=== PATIENT | female | born 1965 | race African-American/Black ===

== ENCOUNTER → 2016-06-09 | Outpatient (CLI) | payer OTHER ==
[~2016-06-09] MED LIST: ALBUTEROL MININEB NEB; ALBUTEROL17 GM INH; AMLODIPINE BESYL5 MG PO; METOPROLOL SUCC50 MG PO; ZESTORETIC 20-1 EAC1 PO
--- NOTE | ~2016-06-09 | ST ---
Unit #: [id number] #: [id number] Patient: TRENT HUSSEIN [id number] [address] [place], [place] [address] [id number] O MR#: [id number] NAME: TRENT HUSSEIN : 1965 SEX: F STUDY DATE/TIME: 06/09/2016 UNIT: [facility] ROOM: STUDY DESCRIPTION: Attending Physician: Lucero Reddy M.D. Referring Physician: Lucero Reddy M.D. Primary Care Physician: Generic Doctor Not In System CARDIOLOGY REPORT REASON FOR TEST Preop surgical clearance for rotator cuff repair. This test was ordered as a walking Lexiscan; however, the patient attempted and was unable to complete secondary to shortness of breath. The patient requested the treadmill be stopped and she was sat down for the remainder of Lexiscan Cardiolite. FINDINGS Baseline EKG shows normal sinus rhythm 79 beats per minute, nonspecific ST-T wave abnormalities. PROCEDURE 0.4 mg of Lexiscan was injected per protocol followed by Cardiolite. During the testing the patient did develop shortness of breath and a slight headache. She denied any complaints of chest pain. There were no ST segment changes suggestive of ischemia. There was no ectopy. The test was stopped secondary to protocol completion. IMPRESSION 1. Negative EKG portion of Lexiscan Cardiolite. 2. No ST segment changes suggestive of ischemia. 3. Positive for shortness of breath. Walking Lexiscan was attempted; however, the patient was unable to complete this secondary to worsening shortness of breath. She requested to stop walking. Test was completed. The remainder of the test was completed with the patient sitting. 4. Her shortness of breath resolved in the recovery period. 5. No arrhythmias were noted. 6. The patient's blood pressure was noted to be relatively high during the testing 190s over 114s to 150s over one teens. I spoke with Dr. Reddy and we reviewed her home medications. I did give the patient a prescription today for amlodipine 5 mg p.o. daily. The patient informed to take the first dose when she gets home today and to monitor her blood pressure. If she has any issues, she is supposed to call the office. 7. Please correlate with nuclear imaging. Dictated by... GayathriDontae Villalta M.D. Unit #: [id number] #: [id number] Patient: TRENT HUSSEIN Emory TD: 06/09/2016 11:33 JOB #: [id number] CARDIOLOGY REPORT Page 1 of 1 X Eden Livingston APRN CARDIOLOGY REPORT
--- NOTE | ~2016-06-09 | TH ---
Unit #: [id number] #: [id number] Patient: TRENT HUSSEIN [id number] [address] [address] [id number] O MR#: [id number] NAME: TRENT HUSSEIN : 1965 SEX: F STUDY DATE/TIME: 06/09/2016 UNIT: [facility] ROOM: STUDY DESCRIPTION: Attending Physician: Lucero Reddy M.D. Referring Physician: Lucero Reddy M.D. Primary Care Physician: Generic Doctor Not In System CARDIOLOGY REPORT EXAM Lexiscan Cardiolite stress test, nuclear portion. PROCEDURE Using technetium 99m labeled Cardiolite, rest and stress SPECT images were obtained. Multiple SPECT images were obtained in various views including horizontal and vertical long axis and short axis views of the left ventricle. Images were obtained by gated SPECT method. The patient was administered 10.66 mCi of Cardiolite at rest. The patient was administered 32.1 mCi of Cardiolite after Lexiscan infusion was completed. On the stress images, there is a medium-sized area of moderate decreased isotope activity anteriorly. The rest images show normal perfusion. Comparing rest and stress images, there is suspicion for medium-sized area of stress-induced ischemia involving the anterior wall of the left ventricle. The left ventricular ejection fraction is calculated to be 37%. There is global hypokinesis seen. CONCLUSION 1. Suspicion for medium-sized area of stress-induced ischemia involving the anterior wall of the left ventricle. 2. The left ventricular ejection fraction is calculated to be 37%. 3. There is global hypokinesis seen. 4. Abnormal Lexiscan Cardiolite stress test suggestive of coronary artery disease. Dictated by... Serena Hernandez TD: 06/09/2016 17:07 JOB #: [id number] Unit #: [id number] #: [id number] Patient: TRENT HUSSEIN CARDIOLOGY REPORT Page 1 of 1 X Lucero Reddy MD <ELECTRONICALLY SIGNED> 09/20/16 0861 CARDIOLOGY REPORT
== END | disposition home or self-care (01) ==
LOC: CNUC 07:36
DX: Z01.810 Encounter for preprocedural cardiovascular examination (principal); R07.9 Chest pain, unspecified; I10 Essential (primary) hypertension; R94.39 Abnormal result of other cardiovascular function study
CPT/HCPCS: 78452; 93017; A9500; J2785

== ENCOUNTER → 2016-07-02 | Outpatient (CLI) | payer OTHER ==
--- NOTE | ~2016-07-02 | HP ---
Unit #: [id number] #: [id number] Patient: TRENT HUSSEIN [id number] [address] [place], [place] [address] [id number] O MR#: [id number] NAME: TRENT HUSSEIN ROOM: Age: 51 Sex: F Admission Date: 07/02/2016 : 1965 Attending Physician: Don Mcclain M.D. Referring Physician: Don Mcclain M.D. Primary Care Physician: Generic Doctor Not In System HISTORY AND PHYSICAL HISTORY OF PRESENT ILLNESS This is a 51-year-old female who came in as a direct admit from a heart catheterization today to be performed by Dr. Mcclain. The patient had a walking Lexiscan Cardiolite stress test done on 06/09/2016 that shows some anterior wall ischemia with LVEF of 37%. Prior to that, patient had been having complaints of some shortness of breath with minimal exertion along with some chest pain. She described the chest pain to be nonradiating but it only occurred on exertion and usually relieved at rest. She denied any palpitations, dizziness, presyncope or syncopal episode. She did complain, as mentioned, of shortness of breath but did not have a cough or been running any fever or chills. The patient had to be put on some steroids a few weeks back of COPD exacerbation and states she has gained about 30 pounds and she does continue to smoke about a half pack of cigarettes a day. Because of patient's worsening shortness of breath and her risk factors and her symptoms suggestive for possibly coronary artery disease, it was recommended that the patient have a walking Lexiscan Cardiolite stress test and, since that was abnormal, she has been advised to have a heart catheterization for further evaluation. PAST MEDICAL HISTORY 1. Hypertension. 2. 2D echo done on 03/28/2016 shows LVEF of 60%, mild LVH, mild mitral regurgitation, mild tricuspid regurgitation. 3. Nicotine abuse. 4. COPD. 5. 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 She has a rotary cuff tear and patient needs surgery for the repair. PAST SURGICAL HISTORY None mentioned. HOME MEDICATIONS 1. Metoprolol 50 mg p.o. daily. 2. Zestoretic /12.5, one tablet p.o. in the morning. 3. Amlodipine 5 mg p.o. in the morning. 4. Ventolin two puffs inhalation every four hours p.r.n. 5. Albuterol sulfate nebulizer three times daily p.r.n. for shortness of breath. ALLERGIES No known drug allergies. SOCIAL HISTORY The patient lives with her family. She currently smokes about a half pack Unit #: [id number] #: [id number] Patient: TRENT HUSSEIN of cigarettes a day and has been smoking most of her adult life. No alcohol or illicit drug abuse. FAMILY HISTORY No noted coronary artery disease in immediate family members. REVIEW OF SYSTEMS CONSTITUTIONAL: No visual or hearing changes, no lymphadenopathy or thyromegaly. No difficulty swallowing. CARDIOVASCULAR: Complains of some mid sternal chest pain. Denies palpitations. No increased lower extremity edema. PULMONARY: Increased shortness of breath, especially with minimal exertion. GI: No nausea, vomiting, diarrhea or abdominal pain. NEUROLOGICAL: No focal weaknesses. PHYSICAL EXAMINATION GENERAL: On exam, Ms. Hussein is a 51-year-old female in no acute respiratory distress. She is awake, alert and oriented. VITAL SIGNS: Blood pressure is 140/91, heart rate is 77, respirations 18, temperature is 97.3. NECK: Trachea midline. No thyromegaly or lymphadenopathy. No carotid bruits. HEART: S1, S2. Regular rate and rhythm. No clicks, murmurs or rubs. LUNGS: Bilaterally clear throughout. No wheezes, rales or rhonchi. ABDOMEN: Soft, nontender. Positive bowel sounds present. No hepatosplenomegaly. EXTREMITIES: Pedal pulses are palpable. No pedal edema. DIAGNOSTIC STUDIES LABORATORY: Today's labs - glucose is 115, BUN 13, creatinine 1.0, eGFR is 74.5, sodium 134, potassium 3.4, chloride 100, CO2 28, calcium 9.5. INR is 1.0. WBC 6.4, hemoglobin 13.3, hematocrit of 42.9, platelets 129. IMAGING: Chest x-ray pending. Chest x-ray preliminary report - nothing acute. CARDIOVASCULAR: EKG shows normal sinus rhythm with left ventricular hypertrophy, prolonged QT. IMPRESSION 1. Chest pain, questionable etiology. 2. Hypertension. 3. Chronic obstructive pulmonary disease. 4. 2D echo 03/28/2014 showed left ventricular ejection fraction of 60%, mild MR and mild TR. 5. Abnormal stress test on 06/09/2016 showed anterior wall ischemia. Left ventricular ejection fraction of 37%. 6. Nicotine abuse. 7. Rotary cuff tear - needs repair. PLAN 1. The patient has come to the hospital today for heart catheterization since her stress test is abnormal and her EF did show some anterior wall ischemia, EF of 37%. 2. Discussed with the patient the risks and benefits of the heart catheterization including risk of bleeding, myocardial infarction, stroke and even . She verbalized understanding and agrees to Unit #: [id number] #: [id number] Patient: TRENT HUSSEIN. 3. Patient is a little hypertensive this morning so will make sure that she has her metoprolol and her Norvasc. The patient is on an TUYET inhibitor for the low LVEF on her Lexiscan. It showed on her stress test that her LVEF was 37% but on her echo earlier this year showed EF of 60% but will re-evaluate during the heart catheterization today. 4. On exam, there are no signs or symptoms of acute congestive heart failure. 5. Encouraged patient to completely quit smoking. Smoking cessation information provided to the patient. 6. Depends on the findings of the heart catheterization when Dr. Reddy will clear the patient for surgery to repair her rotary cuff tear. 7. Further recommendations pending per Dr. Mcclain after the heart catheterization. Dictated by Geetha Cruz A.P.R.N. for Serena Hernandez/zaina TD: 07/02/2016 12:49 JOB #: [id number] HISTORY AND PHYSICAL Page 1 of 1 X Geetha Cruz APRN HISTORY AND PHYSICAL
--- NOTE | ~2016-07-02 | EKG ---
PATIENT: TRENT HUSSEIN UNIT #: [id number] Ventricular Rate: 74 BPM Atrial Rate: 74 BPM P-R Interval: 176 ms QRS Duration: 92 ms Q-T Interval: 446 ms QTC Calculation(Bezet): 495 ms P [place]: 56 degrees Calculated R [place]: 47 degrees Calculated T [place]: 42 degrees Diagnosis Line: Normal sinus rhythm Diagnosis Line: Moderate voltage criteria for LVH, may be normal Diagnosis Line: variant Diagnosis Line: Prolonged QT Diagnosis Line: Abnormal ECG Diagnosis Line: No previous ECGs available Diagnosis Line: Confirmed by SAGE YOUSSEF MD ([id number]) on Diagnosis Line: 07/02/2016 3:39:56 PM INTERPRETING MD: LILIA
[2016-07-02 08:16] LABS: HEMATOCRIT 42.9 % (35.0-45.0); HEMOGLOBIN 13.3 gm/dL (12.0-16.0); MEAN CELL VOLUME 75.2 FL (83-96); MEAN CORPUSCULAR HEMOGLOBIN 23.4 PG (28-34); MEAN CORPUSCULAR HGB CONC 31.1 g/dL (30-36); MEAN PLATELET VOLUME 9.6 FL (6.5-11.5); RED BLOOD COUNT 5.7 X10e (3.90-5.30); RED CELL DISTRIBUTION WIDTH 16.6 % (11.0-15.5); WHITE BLOOD COUNT 6.4 X10e3 (4.0-10.5)
[2016-07-02 08:25] LABS: PARTIAL THROMBOPLASTIN TIME 27.9 SECONDS (23.5-31.3); PROTHROMBIN TIME (PATIENT) 10.8 SECONDS (9.6-11.5)
[2016-07-02 08:36] LABS: CALCIUM SERUM 9.5 mg/dL (8.4-10.2); GLOM FILT RATE Estimated 74.5 mL/min (>60); POTASSIUM 3.4 mmol/L (3.5-5.1)
== END | disposition home or self-care (01) ==
LOC: CCVL 07:38
PROVIDERS: Internal Medicine Cardiovascular Disease
DX: I11.9 Hypertensive heart disease without heart failure (principal); R07.9 Chest pain, unspecified; J44.9 Chronic obstructive pulmonary disease, unspecified; E66.9 Obesity, unspecified; F17.210 Nicotine dependence, cigarettes, uncomplicated; M25.512 Pain in left shoulder; R94.39 Abnormal result of other cardiovascular function study; I08.1 Rheumatic disorders of both mitral and tricuspid valves
CPT/HCPCS: 36415; 80048; 85027; 85610; 85730; 93005; C1769; C1887; C1894; J1644; J2250; J3010